=== PATIENT | male | born 1950 | race African-American/Black ===

== ENCOUNTER 2023-11-09 14:05 | Emergency (ER) | payer OTHER ==
[2023-11-09 15:26] VITALS: BMI 20.3
[2023-11-09] MEDS ORDERED: ACETAMINOPHEN 325 MG TABLET (FP) ONE (16:12)
[2023-11-09] MEDS: ACETAMINOPHEN 500 MG TABLET (FP) PO ONE (16:23)
[2023-11-09] MEDS ORDERED: ceFAZolin SODIUM 1 GM VIAL ONE (16:50)
[2023-11-09] MEDS: CEFAZOLIN 1 GM in DEXTROSE 5%-WATER - 50 ML IVPB ONE (16:53)
[2023-11-09 16:54] LABS: BASO % 1.8 % (0-2.0); EOS % 1.2 % (0-4.5); HEMATOCRIT 40.8 % (35.4-49); HEMOGLOBIN 13.5 GM/dL (11.7-16.9); LYMPH % 32.2 % (8-40); MCH 27.5 pg (25.7-33.7); MEAN CELL VOLUME 83.2 fl (80-96); MEAN PLT VOLUME 6.6 fl (7.5-11.1); MONO % 9.3 % (3.8-10.2); NEUT % 55.5 % (42.8-82.8); PLATELET COUNT 302 10^3/uL (134-434); RBC 4.91 M/mm3 (4.00-5.60); RDW 14.6 % (11.9-15.9); WHITE BLOOD COUNT 7.3 K/mm3 (4.0-10.0)
[2023-11-09 17:00] LABS: INR 1.1 (0.83-1.09); PROTHROMBIN TIME (PATIENT) 12.4 SEC (9.7-13.0)
[2023-11-09 17:26] LABS: POTASSIUM 4.8 mmol/L (3.5-5.1)
[2023-11-09 17:28] LABS: CALCIUM 9.4 mg/dL (8.5-10.1)
[2023-11-09 17:29] LABS: BLOOD UREA NITROGEN 22.2 mg/dL (7-18)
[2023-11-09 17:30] LABS: ALBUMIN 3.4 g/dl (3.4-5.0)
[2023-11-09 17:33] LABS: BILIRUBIN,TOTAL 0.3 mg/dL (0.2-1); CREATININE 1.2 mg/dL (0.55-1.3)
[2023-11-09 17:36] LABS: TOT PROT 7.3 g/dl (6.4-8.2)
[2023-11-09] MEDS ORDERED: DIPHTH,PERTUSS(ACELL),TET 0.5 ML DISP.SYRIN IM ONE (18:28)
[2023-11-09] MEDS: DIPHTH,PERTUSS(ACELL),TET 0.5 ML DISP.SYRIN IM ONE (18:28)
[2023-11-10 06:38] VITALS: RESP 18
[2023-11-10 12:24] VITALS: TEMP 98.2
[2023-11-10] MEDS ORDERED: CEPHALEXIN MONOHYDRATE 500 MG CAPSULE (UD) ONE ×2 (17:47→21:27)
[2023-11-10] MEDS: CEPHALEXIN MONOHYDRATE 500 MG CAPSULE (UD) PO ONE (17:51)
[2023-11-10] MEDS: CEPHALEXIN MONOHYDRATE 250 MG CAPSULE (FP) PO ONE (21:26)
[2023-11-10] MEDS: hydrALAZINE HCL 25 MG TABLET (FP) PO ONE (23:00)
[2023-11-10] MEDS ORDERED: hydrALAZINE HCL 25 MG TABLET (FP) ONE (23:13)
[2023-11-10 23:39] VITALS: BP 141/77; PULSE 76
[2023-11-11] MEDS ORDERED: ASPIRIN COATED 81 MG TABLET.EC PO ONE (10:00)
== END 2023-11-10 23:39 ==
LOC: JER 14:05
PROC: 3E03329 Introduction of Other Anti-infective into Peripheral Vein, Percutaneous Approach (ICD-10-PCS; principal; 2023-11-09)
PROC: 3E0234Z Introduction of Serum, Toxoid and Vaccine into Muscle, Percutaneous Approach (ICD-10-PCS; 2023-11-09)
DX: S62.664A Nondisplaced fracture of distal phalanx of right ring finger, initial encounter for closed fracture (principal); W23.0XXA Caught, crushed, jammed, or pinched between moving objects, initial encounter; Z23 Encounter for immunization
CPT/HCPCS: 36415; 73130-TC-RT-FY; 80053; 85025; 85610; 85730; 86850; 86900; 86901; 90471; 90715; 96365; 99284-25